=== PATIENT | female | born 1965 | race Caucasian/White ===

== ENCOUNTER → 2019-01-02 13:09 | Outpatient (CLI) | payer BC | END | disposition home or self-care (01) | LOC: D.US 13:09 | PROVIDERS: ATTEND Internal Medicine Interventional Cardiology | DX: R09.89 Other specified symptoms and signs involving the circulatory and respiratory systems (principal) ==

== ENCOUNTER → 2019-01-17 07:55 | Outpatient (CLI) | payer BC ==
--- NOTE | ~2019-01-17 | ST ---
PATIENT:LINDA DELA CRUZ MEDICAL RECORD: [id number] SEX: F LOCATION:[facility] ORDER #: ADMISSION DATE: 01/17/19 AGE OF PATIENT: 53 REFERRING PHYSICIAN: INTERPRETING PHYSICIAN: BUZZ STERLING MD DATE OF SERVICE: 01/17/2019 PROCEDURE: Nuclear stress test. INDICATION: Angina, hypertension, abnormal ECG. DESCRIPTION OF PROCEDURE: She was exercised on standard Lexiscan protocol for 33 mCi of sestamibi injected at peak stress, 11 mCi were used previously for rest images. FINDINGS: Gated SPECT reveals preserved ejection fraction at 71% with good wall motioning and thickening and brightening throughout all segments. SPECT imaging Cardiolite was used as myocardial perfusion agent. There is reversibility anteriorly and apically. This includes the basal, mid, apical anterior segments as well as the apex itself. The degree of reversibility is mild to moderate. The amount of myocardium involved is moderate. OVERALL IMPRESSION: This is an intermediate risk abnormal nuclear stress test. Reversible ischemia anteroapically suggestive of hemodynamically significant coronary artery disease. TRANSINT:[id number] Voice Confirmation ID: [id number] DOCUMENT ID: [id number] BUZZ STERLING MD CC: TOY MANN [id number] DICTATION DATE: 01/18/19 1416 ELECTRICAL ENGINEER MEP: 01/19/19 0454 DEP CLI 01/17/19 [place] [id number] [place] [address]
[~2019-01-17 07:55] MED LIST: BAYER CHEWABLE81 MG PO; CALCIUM 600 +1 EAC3 PO; CENTRUM SILVER1 EAC3 PO; CO Q-10100 MG PO; COLACE100 MG PO; CYANOCOBAL1000 MCG/4 IM; EDARBI40 MG PO; FISH OIL 1,0001 CA1 PO; LOPRESSOR25 MG PO; MAG-OX 400 MG400 MG PO; MUCINEX600 MG PO; SINGULAIR10 MG PO; SYNTHROID88 MCG PO; TRIAMTERENE-HC1 EAC3 PO
--- NOTE | 2019-01-18 13:04 | EC ---
PATIENT:LINDA DELA CRUZ DATE OF SERVICE: 01/17/19 SEX: F MEDICAL RECORD: [id number] DATE OF : 63 LOCATION:[facility] AGE OF PATIENT: 53 ADMISSION DATE: 01/17/19 REFERRING PHYSICIAN: INTERPRETING PHYSICIAN: RATNA COVINGTON MD ECHOCARDIOGRAM REPORT ECHO CHARGES 4 ECHO COMPLETE Date: 01/17/19 CLINICAL DIAGNOSIS: ARRHYTHMIAS/ANGINA/MURMUR/HTN ECHOCARDIOGRAPHIC MEASUREMENTS (adult normal given) AC root (d.<3.7cm) 2.7 cm LV Septum d (<1.2 cm> 0.8 cm Valve Excursion 2.0 cm LV Septum (systole) 1.0 cm Left Atria (s.<4.0cm> 3.3 cm LVPW d(<1.2cm) 0.7 cm RV (d.<2.3cm) 2.2 cm LVPW (sytole) 1.0 cm LV diastole(<5.6CM) 4.2 cm MV E-F(>70mm/sec) cm LV systole 3.3 cm LVOT Diameter 1.8 cm MV exc.(>10mm) cm Est.ejection fraction (50-75%) % DOPPLER: LVIT cm/sec A 59.0 cm/sec E 73.0 cm/sec LA cm/sec RVSP 15.2 mmHg LVOT 77.0 cm/sec AOP1/2T m/s Asc. Ao 138 cm/sec RVOT 64.0 cm/sec RA cm/sec PA 102 cm/sec AV Gradient Peak 7.6 mmHg AV Mean 3.8 mmHg AV Area 1.4 cm MV Gradient Peak 3.3 mmHg MV Mean 1.3 mmHg MV Area cm COMMENTS: OP - HC Clinical Laboratory Science Professor: 1 GARRETT RAYLE Watch Dial Stoner: 3 Dr. Multani TAPE# PACS Pericardial Effusion N DATE OF SERVICE: 01/17/2019 Adequate 2-D echo, color-flow and spectral Doppler, and M-mode. No LVH. LV internal dimension is normal. Wall motion is normal. EF is greater than or equal to 55%. Aortic valve is tricuspid. No evidence of stenosis by Doppler interrogation. Left atrium is normal. Mitral valve shows no prolapse. Trace MR. Right-sided chambers are grossly normal. Trace TR. TRANSINT:[id number] Voice Confirmation ID: [id number] DOCUMENT ID: [id number] ECHOCARDIOGRAM REPORT [id number] LINDA DELA CRUZ GREGORY A MD at 1304 CC: [id number] DICTATION DATE: 01/17/19 1504 TICKET TAKER: 01/18/19 0006 DEP CLI 01/17/19 [place] [id number] [place] [id number]
[2019-01-21 19:49] VITALS: BMI 32.0
== END | disposition home or self-care (01) ==
LOC: D.HCCECHO 07:55
PROVIDERS: ATTEND Internal Medicine Interventional Cardiology
DX: I20.9 Angina pectoris, unspecified (principal); I10 Essential (primary) hypertension

== ENCOUNTER 2019-01-21 14:46 | Observation (INO) | payer BC ==
[~2019-01-21] VITALS: Ht 167.6 cm; Wt 90.0 kg
--- NOTE | ~2019-01-21 | HEMODYNAMI ---
PATIENT:LINDA DELA CRUZ MEDICAL RECORD: [id number] : 63 [facility] ADMISSION DATE: 01/21/19 Generatedon:01/22/201916:17 Patient name: LINDA DELA CRUZ Patient #: [id number] SSN: [id number] : 1965 Date of study: 01/22/2019 Page: Of Hemodynamic Procedure Report Patient Data Patient Demographics Procedure consent was obtained First Name: LINDA Gender: Female Last Name: JOSE DE JESUS : 1965 [facility] Initial: C Age: 53 year(s) Patient #: [id number] Race: SSN: [id number] Additional ID: [id number] Contact details Address: [address] [place] [address] [place] State: [place] City: [place] Zip code: [address] Past Medical History Performed procedures and imaging results Date Procedure Procedure Results Comments 01/06/2019 Stress testing Positive->Intermediate with SPECT MPI risk Allergies Allergen Reaction Date Comments Reported Other allergy 01/22/2019 Sulfa, Latex Admission Admission Data Admission Date: 01/21/2019 Admission Time: 17:20 Arrival Date: 01/22/2019 Arrival Time: 0:00 Admit Source: Other Insurance Payor: Private Room #: [id number] health insurance [facility] #: [id number] Height (in.): 66 BSA: 1.99 (m2) Height (cm.): 167.64 BMI: 32.02 (kg/m2) Weight (lbs.): 198.42 Weight (kg.): 90 Lab Results Lab Result Date: 01/22/2019 Lab Result Time: 0:00 Biochemistry Name Units Result Min Max BUN mg/dl 18 --(---*)-- 7 18 Creatinine mg/dl 0.8 --(-*--)-- 0.6 1.3 eGFR ml/min 79.64883 *-(----)-- 90 120 NONAFRICAN Troponin l ng/ml 0.017 --(-*--)-- 0 0.06 CBC Name Units Result Min Max Hematocrit % 39.5 -*(----)-- 42 54 Hemoglobin g/dl 13.7 --(*---)-- 13.5 17.5 Procedure Procedure Types Cath Procedure Diagnostic Procedure C LH w/Coronaries Procedure Description Procedure Date Procedure Date: 01/22/2019 Procedure Start Time: 15:50 Procedure End Time: 16:02 Procedure Staff Name Function Ahmet Cole MD Performing Physician Abbey Horne RT Monitor Payal Ruvalcaba RT Monitor Taqueria Hamilton RN Nurse Manda Ibanez RT Scrub Sean Stevenson RT Scrub Indication Chest pain Procedure Data Cath Procedure Fluoroscopy Diagnostic fluoroscopy Total fluoroscopy Time: 1.4 time: 1.4 min min Diagnostic fluoroscopy Total fluoroscopy dose: 242 dose: 242 mGy mGy Contrast Material Contrast Material Type Amount (ml) Isovue 370 53 Entry Location Entry Primary Successful Side Size Upsize Upsize Entry Closure Succes sful Closure Location (Fr) 1 (Fr) 2 (Fr) Remarks Device Remarks Radial Right 6 Fr artery Short Femoral Right 5 Fr Exoseal artery Estimated blood loss: 5 ml Diagnostic catheters Device Type Used For End Catheter Placement DIAGNOSTIC Sawyer 110cm 5 Procedure Fr catheter ([id number]) MULTIPACK JL 4.0 5Fr Procedure catheter MULTIPACK 3DRC 5Fr Procedure catheter MULTIPACK Pigtail 5 Fr Procedure catheter Procedure Complications No complications Procedure Medications Medication Administration Route Dosage Versed I.V. 2 mg Fentanyl I.V. 100 mcg Zofran I.V. 4 mg Oxygen etCO2 Nasal cannula 2 l/min Lidocaine 2% added to field 20 Heparin Flush Bag added to field 2 bags (1000units/500ml NS) 0.9% NaCl I.V. 100 ml/hr Versed I.V. 1 mg Fentanyl I.V. 50 mcg Versed I.V. 1 mg Fentanyl I.V. 50 mcg Radial Cocktail I.A. 1 syringe (Verapamil 2mg/Nitro 400mcg/Heparin 1500units) Hemodynamics Rest BSA: 1.99 (m2) HGB: 13.7 (g/dl) O2 Consumption: Estimated: 209.06 (ml/min) O2 Co nsumption indexed: Estimated:105.06 (ml/min/m) Heart Rate: 92 (bpm) Pressure Samples Time Site Value (mmHg) Purpose Heart Use Rate(bpm) 15:58 LV 104/8,11 Snapshot 101 15:59 AO 92/66(77) Pullback 96 15:59 LV 99/16,18 Pullback 96 Gradients Valve Time Site 1 Site 2 Mean SEP/DFP Peak To Heart Use (mmHg) (sec/min) Peak Rate (mmHg) (bpm) Aortic 15:59 LV AO 5 18 7 96 99/16,18 92/66(77) Calculations Valve P-P Mean Valve Index Valve Source Name Gradient Area Flow (cm2) Aortic 7 5 7 5 Snapshots Pre Cath Intra NCS Post Cath Vital Signs Time Heart Resp SPO2 etCO2 NIBP Rhythm Pain Sedation Rate (ipm) (%) (mmHg) (mmHg) Status Level (bpm) 15:41:26 92 32 96 0.7 113/76(95) NSR 0 (11) 10(A) , No pain 15:46:30 89 76 92 2.2 102/69(84) NSR 0 (11) 10(A) , No pain 15:50:29 95 96 96 34.7 102/66(84) NSR 0 (11) 10(A) , No pain 15:54:31 84 55 94 0 92/57(72) NSR 0 (11) 9(A) , No pain 15:58:25 96 15 96 24.9 101/69(88) NSR 0 (11) 9(A) , No pain 16:02:22 98 16 96 21.9 106/67(87) NSR 0 (11) 10(A) , No pain Medications Time Medication Route Dose Verified Delivered Reason Notes Effectiveness by by 15:44:33 Oxygen etCO2 2 l/min Ahmet Meng used for Nasal St Anival Hamilton business test analyst cannula 15:45:14 Lidocaine 2% added 20ml Ahmet Leo for local to vial [facility] anesthetic field MD COTTON 15:45:23 Heparin Flush added 2 bags Ahmet Leo used for Bag to [facility] procedure (1000units/500ml field MD COTTON NS) 15:45:33 0.9% NaCl I.V. 100 Ahmet Meng Per ml/hr St Anival Hamilton RN physician 15:46:20 Zofran I.V. 4 mg Ahmet Meng Per KelseyAnival lucero MD 15:50:05 Versed I.V. 2 mg Ahmet Sathishie for sedation St Anival Hamilton RN, MD 15:50:10 Fentanyl I.V. 100 mcg Ahmet Bowerie for sedation St Anival Hamilton RN, MD 15:51:50 Radial Cocktail I.A. 1 Ahmet Leo for (Verapamil syringe KelseyAnival Cole vasodilation 2mg/Nitro MD COTTON 400mcg/Heparin 1500units) 15:55:19 Versed I.V. 1 mg Ahmet Buffie for sedation St Anival Hamilton RN, MD 15:55:22 Fentanyl I.V. 50 mcg Ahmet Buffie for sedation St Anival Hamilton RN, MD 15:57:14 Versed I.V. 1 mg Ahmet Bowerie for sedation St Anival Hamilton RN, MD 15:57:18 Fentanyl I.V. 50 mcg Ahmet Buffie for sedation St Anival Hamilton RN, MD Procedure Log Time Note 15:13:30 Indication : Chest pain 15:13:39 Procedure Status Urgent Heart Cath (IP). 15:13:43 Abbey Horne RT(R) sent for patient. Start room use. 15:13:46 Time tracking: Regular hours (M-F 7:00 - 5:00) 15:13:50 Plan of Care:Hemodynamics will remain stable., Cardiac rhythm will remain stable., Comfort level will be maintained., Respiratory function will remain adequate., Patient/ family verbilizes understanding of procedure., Procedure tolerated without complication., Recovers from procedure without complications.. 15:14:15 Risk of Mortality: 0.1 15:14:18 Risk of blood transfusion: 0.1 15:14:21 Risk of COLLIN: 0.3 15:14:28 Stress Test: yes; abnormal ? 15:14:31 Lab results completed and on chart. 15:15:14 Lab Result : BUN 18 mg/dl 15:15:14 Lab Result : Creatinine 0.8 mg/dl 15:15:14 Lab Result : eGFR NONAFRICAN 79.65495 ml/min 15:15:14 Lab Result : Troponin l 0.017 ng/ml 15:15:14 Lab Result : Hemoglobin 13.7 g/dl 15:15:14 Lab Result : Hematocrit 39.5 % 15:15:52 Patient allergic to Other allergySulfa, Latex 15:16:28 Informed consent obtained and on chart 15:20:01 Arrival Date: 01/22/2019 12:00:00 AM 15:20:03 Admit Source: Other 15:20:05 Insurance Payor : Private health insurance 15:20:30 Patient Height : 66 inches 15:20:34 Patient Weight : 198.42 lbs 15:20:56 Patient received from Med II to CCL 1 Alert and oriented. Tansferred to table in Supine position. 15:21:29 Warm blankets applied, and mitchell hugger turned on for patient comfort. 15:21:30 Correct patient and procedure confirmed by team. 15:21:37 H&P Date Dictated: 01/22/2019 Within 30 days and on chart.. 15:21:38 Pre-procedure instructions explained to patient. 15:21:39 Pre-op teaching completed and patient verbalized understanding. 15:21:54 Family in patients room. 15:21:56 Patient NPO since Midnight. 15:22:32 ECG and BP/O2 sat monitors applied to patient. 15:23:33 Is the patient allergic to Iodine/contrast media? No. 15:23:35 Was the patient premedicated? Yes 15:23:36 Is patient on blood thinner?No 15:23:40 Patient diabetic? No. 15:23:42 If diabetic: On Metformin? N/A 15:23:47 HCG/Urine : completed and on chart 15:24:39 pt has had ablasion, spuse has had vastectomy, negative to . 15:24:45 ----Pre-sedation anethsthesia assessment.---- 15:24:48 Previous problem with sedation/anesthesia? No ? 15:24:50 Snore? No 15:24:52 Sleep apnea? No 15:24:54 Deviated septum? No 15:24:56 Opens mouth fully? Yes 15:24:57 Sticks out tongue? Yes 15:24:59 Airway obstruction? No ? 15:25:03 Dentures? No ? 15:25:11 Patient pain scale 0/10 ?. 15:25:20 Alarms reviewed by R. N. 15:25:20 Sharps counted by scrub and verified by R.N. 15:25:25 Vital chart was started 15:25:26 Full Disclosure recording started 15::18 Baseline sample Acquired. 15::23 Rhythm: sinus rhythm 15:31:05 Pre procedure: right dorsailis pedis pulse 1+ Palpable, but thready & weak; easily obliterated 15:31:21 ACIST Syringe (15668) opened to sterile field. 15:31:21 Bag Decanter (2002) opened to sterile field. 15:31:22 Medline Cath Pack ([id number]) opened to sterile field. 15:31:24 ACIST Hand Control (50815) opened to sterile field. 15:31:25 ACIST Manifold (51793) opened to sterile field. 15:31:26 Tegaderm 4 x 4 (1626W) opened to sterile field. 15:31:28 EMERALD Guide Wire (728-680) opened to sterile field. 15:36:43 IV started by Taqueria Hamilton RN inleft forearm with a 22 gauge IV catheter with 0.9% NaCl at KVO. 15:36:57 IV right antecubital D/C'd due to site irritation. 15:44:33 Oxygen 2 l/min etCO2 Nasal cannula was administered by Taqueria Hamilton RN; used for procedure; Verbal order read back and verified. 15:45:14 Lidocaine 2% 20ml vial added to field was administered by Ahmet Cole MD; for local anesthetic; Verbal order read back and verified. 15:45:23 Heparin Flush Bag (1000units/500ml NS) 2 bags added to field was administered by Ahmet Cole MD; used for procedure; Verbal order read back and verified. 15:45:33 0.9% NaCl 100 ml/hr I.V. was administered by Taqueria Hamilton RN; Per physician; Verbal order read back and verified. 15:46:20 Zofran 4 mg I.V. was administered by Taqueria Hamilton RN; Per physician; Verbal order read back and verified. 15:48:00 Use device set Radial Dx or PCI 15:48:37 MBrace Wrist Support ([id number]) opened to sterile field. 15:48:40 SHEATH 6FR RAIN (4515753) opened to sterile field. 15:49:28 --------ALL STOP TIME OUT------ 15:49:29 Final Timeout: patient, procedure, and site verified with staff and physician. All members of the team are in agreement. 15:49:32 Right Radial & Right Groin site verified by team. 15:49:37 Fire Safety Assessment: A--An alcohol-based skin anteseptic being used preoperatively., C--Open oxygen or nitrous oxide is being used., D--An ESU, laser, or fiber-optic light is being used. 15:49:40 Physical assessment completed. ASA score P 2 - A patient with mild systemic disease as per Ahmet Cole MD. 15:49:44 2) 60-89 Mildly reduced kidney function, and other findings (as for stage 1) point to kidney disease. 15:49:47 Maximum allowable contrast dose (3.7 X eGFR X 0.75)219 ml. 15:49:52 Sedation plan: IV Moderate Sedation Medication:Versed, Fentanyl 15:50:00 Procedure started. 15:50:05 Versed 2 mg I.V. was administered by Taqueria Hamilton RN; for sedation; Verbal order read back and verified. 15:50:10 Fentanyl 100 mcg I.V. was administered by Taqueria Hamilton RN; for sedation; Verbal order read back and verified. 15:50:14 Local anesthetic to right radial VEIN with Lidocaine 2% by Ahmet Cole MD.INITIAL ACCESS ONLY 15:50:29 A DIAGNOSTIC Sawyer 110cm 5 Fr catheter (984054) was advanced over the wire and used for Procedure. 15:50:46 A 6 Fr Short sheath was inserted into the Right Radial artery 15:51:50 Radial Cocktail (Verapamil 2mg/Nitro 400mcg/Heparin 1500units) 1 syringe I.A. was administered by Ahmet Cole MD; for vasodilation; Verbal order read back and verified. 15:52:29 ACCESS TO RT RADIAL VEIN, CATHETER REMOVED, PROCEEDING TO RT GROIN. 15:53:01 Local anesthetic to right femoral artery with Lidocaine 2% by Ahmet Cole MD.ADDITIONAL ACCESS 15:53:05 SHEATH 5FR [place] (VFU449) opened to sterile field. 15:53:21 A 5 Fr sheath was inserted into the Right Femoral artery 15:53:35 Use device set Multipack Set 15:53:38 DIAGNOSTIC Multipack 5Fr catheter set ([id number]) opened to sterile field. 15:53:44 A MULTIPACK JL 4.0 5Fr catheter was advanced over the wire and used for Procedure. 15:54:39 LCA angiography performed. 15:55:19 Versed 1 mg I.V. was administered by Taqueria Hamilton RN; for sedation; Verbal order read back and verified. 15:55:22 Fentanyl 50 mcg I.V. was administered by Taqueria Hamilton RN; for sedation; Verbal order read back and verified. 15:55:45 Catheter removed. 15:55:55 A MULTIPACK 3DRC 5Fr catheter was advanced over the wire and used for Procedure. 15:56:38 RCA angiography performed. 15:56:46 ACCDominant side:Co-Dominant 15:56:59 Catheter removed. 15:57:04 A MULTIPACK Pigtail 5 Fr catheter was advanced over the wire and used for Procedure. 15:57:14 Versed 1 mg I.V. was administered by Taqueria Hamilton RN; for sedation; Verbal order read back and verified. 15:57:18 Fentanyl 50 mcg I.V. was administered by Taqueria Hamilton RN; for sedation; Verbal order read back and verified. 15:57:21 Injector settings: Ml/sec: 10, Volume: 20, 15:58:44 LV hemodynamics recorded. 15:58:49 LV gram done using LEROY 15:58:58 EF : 55 % 15:59:30 Catheter removed. 15:59:39 EXOSEAL 5Fr (EX500) opened to sterile field. 15:59:56 Sheath removed intact; hemostasis achieved with Exoseal to the Right Femoral artery. 16:00:15 Procedure ended.(Physican Out) 16:00:52 Fluoroscopy time 01.40 minutes. 16:00:57 Fluoroscopy dose: 242 mGy 16:00:57 Flurop Dose total: 242 16:01:03 Dose Area Product 23240 mGy/cm. 16:01:15 Contrast amount:Isovue 370 53ml. 16:01:18 Maximum allowable dose exceeded? No. 16:01:19 ZEPHYR REGULAR TR BAND (726835) opened to sterile field. 16:01:19 Sharps counted by scrub and verified by R.N. 16:01:20 Tegaderm 4 x 4 (1626W) opened to sterile field. 16:01:25 Post-op/insertion site Right Femoral artery dressed using a 4 x 4 and Tegaderm. 16:01:30 Post right femoral artery:stable, soft, clean and dry 16:01:32 Post Procedure Pulses reassessed and unchanged 16:01:36 Post procedure: right dorsailis pedis pulse 1+ Palpable, but thready & weak; easily obliterated. 16:01:40 Post-procedure physical assessment completed. ASA score P 2 - A patient with mild systemic disease as per Ahmet Cole MD. 16:01:45 Post procedure rhythm: unchanged. 16:01:48 Estimated blood loss: 5 ml 16:01:50 Post procedure instruction explained to patient.Patient verbalizes understanding. 16:01:53 Patient needs reinforcement of post procedure teaching. 16:02:35 Procedure Complication : No complications 16:02:41 Operative report dictated upon procedure completion. 16:02:42 See physician's report for complete and final results. 16:02:44 Report given to Pre/Post Procedure Room. 16:02:48 Patient transfered to Pre/Post Procedure Room with Stretcher. 16:02:53 Full Disclosure recording stopped 16:03:01 C Findings: mild to moderate CAD (<70%) 16:04:10 Vital chart was stopped 16:15:15 End room use (Document Last) 16:17:09 [place] band inflated with 10cc of air. Device Usage Item Name Manufacture Quantity Catalog Hospital Part Current Minima l Lot# / Number Charge Number Stock Stock Serial# Code ACIST Acist 1 41726 932439 759871 390546 20 Syringe Medical (45969) Systems Inc Bag Microtek 1 2001S 782406 78294 658159 5 Decanter Medical Inc. (2001S) Medline Medline 1 [id number] 360799 99296 704294 5 Cath Pack ([id number]) ACIST Hand Acist 1 31677 298569 318979 470164 5 Control Medical (71183) Systems Inc ACIST Acist 1 34577 059055 748234 066504 5 Manifold Medical (45142) Systems Inc Tegaderm 4 3M 2 1626W 814218 218190 797015 5 x 4 (1626W) EMERALD Cardinal 1 502-455 053549 951770 387214 5 Guide Wire Health (588-713) MBrace Advanced 1 140-0250-00 891358 81711 561138 5 Wrist Vascular Support Dynamics (145825388) SHEATH 6FR Cardinal 1 8694491 220403 1670194 504357 5 [facility] (6538418) DIAGNOSTIC Terumo 1 91-7251 463001 047440 505102 5 Sawyer 110cm 5 Fr catheter (629104) SHEATH 5FR Terumo 1 TSI198 290782 284683 685302 5 [place] (STM888) DIAGNOSTIC Cardinal 1 YY6146 036109 30155 712690 30 Multipack Health 5Fr catheter set (QW8276) MULTIPACK Cardinal 1 229969 5 JL 4.0 5Fr Health catheter MULTIPACK Cardinal 1 925604 5 3DRC 5Fr Health catheter MULTIPACK Cardinal 1 980262 5 Pigtail 5 Health Fr catheter EXOSEAL 5Fr Cardinal 1 EX500 122817 200103 726556 10 (EX500) Health ZEPHYR Cardinal 1 635341 009195 5085304 929112 5 REGULAR TR Health BAND (104042) Signature Audit [place] Stage Time Signature Unsigned Intra-Procedure 01/22/2019 Payal Ruvalcaba 4:15:29 PM RT(R) Intra-Procedure 01/22/2019 Taqueria Hamilton RN 4:17:25 PM Intra-Procedure 01/22/2019 Ahmet Powers 4:17:48 PM Anival COTTON [facility] [address] [place] [address]
[2019-01-21 15:00] VITALS: BP 143/80
[2019-01-21 15:54] LABS: BASOPHILS 0.3 % (0-2); EOSINOPHILS 1.4 % (0-7); HEMATOCRIT 41.5 % (36.0-48.0); HEMOGLOBIN 14.6 g/dL (12-16); IMMATURE GRANULOCYTES 0.2 % (0-5); LYMPHOCYTES 31.9 % (15-50); MCH 31.2 pg (26.0-34.0); MCHC 35.2 g/dL (31.0-37.0); MCV 88.7 fL (80.0-100.0); MEAN PLATELET VOLUME 9.4 fL (7.4-10.4); MONOCYTES 8.3 % (2-11); NEUTROPHILS 57.9 % (40-80); PLATELET COUNT 360 10x3/uL (130-400); RBC 4.68 10x6/uL (4.00-5.40); RDW 13.5 % (11.5-14.5); WBC 9.1 10x3/uL (4.8-10.8)
[2019-01-21 16:00] VITALS: BP 130/79
[2019-01-21 16:08] LABS: CALC OSMOLALITY 275 mosm/kg (275-300); CALCIUM 9.8 mg/dL (8.5-10.1); CARBON DIOXIDE 27.4 mmol/L (21.0-32.0); CHLORIDE - SERUM 101 mmol/L (98-107); CREATININE - SERUM 0.8 mg/dL (0.6-1.3); GLUCOSE 97 mg/dL (74-106); POTASSIUM - SERUM 3.5 mmol/L (3.5-5.1); SODIUM 138 mmol/L (136-145); UREA NITROGEN 13 mg/dL (7-18); eGFR NON AFRICAN AMERICAN 79 mL/min (90-120)
[2019-01-21 16:09] LABS: INR 0.97 (0.85-1.17); PROTIME 12.4 SECONDS (11.6-15.0)
[2019-01-21 16:10] LABS: APTT 32.5 SECONDS (22.8-39.4)
[2019-01-21 16:23] LABS: ALBUMIN 4.1 g/dL (3.4-5.0); ALKALINE PHOSPHATASE 65 U/L (46-116); ALT (SGPT) 32 U/L (10-68); BILIRUBIN - TOTAL 0.32 mg/dL (0.2-1.3); CKMB 0.4 U/L (0.0-3.6); CREATINE KINASE 61 UL (21-215); PROTEIN - SERUM 7.8 g/dL (6.4-8.2)
[2019-01-21 16:27] LABS: TROPONIN-I < 0.017 ng/mL (0.000-0.060)
[2019-01-21 17:00] VITALS: BP 123/75
[2019-01-21 18:00] VITALS: BP 123/72
[2019-01-21] MEDS ORDERED: SYNTHROID88 MCG PO (18:38)
[2019-01-21] MEDS ORDERED: SINGULAIR10 MG PO (18:39)
[2019-01-21] MEDS ORDERED: CYANOCOBAL1000 MCG/4 IM (18:41)
[2019-01-21] MEDS ORDERED: TRIAMTERENE-HC1 EAC3 PO (18:43)
[2019-01-21] MEDS ORDERED: EDARBI40 MG PO (18:43)
[2019-01-21] MEDS ORDERED: CENTRUM SILVER1 EAC3 PO (18:44)
[2019-01-21] MEDS ORDERED: CALCIUM 600 +1 EAC3 PO (18:44)
[2019-01-21] MEDS ORDERED: BAYER CHEWABLE81 MG PO (18:45)
[2019-01-21] MEDS ORDERED: FISH OIL 1,0001 CA1 PO (18:45)
[2019-01-21] MEDS ORDERED: CO Q-10100 MG PO (18:45)
[2019-01-21] MEDS ORDERED: COLACE100 MG PO (18:46)
[2019-01-21] MEDS ORDERED: MAG-OX 400 MG400 MG PO (18:46)
[2019-01-21] MEDS ORDERED: MUCINEX600 MG PO (18:47)
[2019-01-21] MEDS ORDERED: LOPRESSOR25 MG PO (19:09)
--- NOTE | 2019-01-21 19:16 | NUR ---
PT REQUESTING "WELCOME BASKET" GRINDER SET UP OPERATOR SURFACE TOOK PT BATH BASIN WITH, SOCKS, TOOTH BRUSH AND TOOTH PASTE, BODY WASH, LOTION AND A BRUSH.
[2019-01-21 19:49] VITALS: BP 131/73; Ht 167.6 cm; Wt 90.0 kg
--- NOTE | 2019-01-21 20:00 | NUR ---
PT A&O. RESPERATIONS EVEN ON RA, IV TO RIGHT WIRST AC, SITE CLEAN AND DRY. HISTORY AND MED REC COMPLETE. PT EATING CHIC HAILE A THAT FAMILY HAD BROUGHT IN, PT CHRISTOPHERY DENIES PAIN OR NEEDS, BED LOW, CL IN REACH.
[2019-01-22] VITALS: BP 102/57
--- NOTE | 2019-01-22 02:12 | NUR ---
RESTING WITH EYES CLOSED, REPSERATIONS EVEN. NO S/S DISTRESS NOTED.
--- NOTE | 2019-01-22 02:43 | NUR ---
I have reviewed this patient and I concur with the Shift Assessment completed by the Licensed Practical Nurse today this shift.
[2019-01-22 04:30] VITALS: BP 120/64
[2019-01-22 04:46] LABS: BASOPHILS 0.2 % (0-2); EOSINOPHILS 3.4 % (0-7); HEMATOCRIT 39.5 % (36.0-48.0); HEMOGLOBIN 13.7 g/dL (12-16); IMMATURE GRANULOCYTES 0.1 % (0-5); LYMPHOCYTES 33.5 % (15-50); MCHC 34.7 g/dL (31.0-37.0); MCV 89.4 fL (80.0-100.0); MEAN PLATELET VOLUME 9.4 fL (7.4-10.4); NEUTROPHILS 53.8 % (40-80); PLATELET COUNT 338 10x3/uL (130-400); RBC 4.42 10x6/uL (4.00-5.40); RDW 13.6 % (11.5-14.5); WBC 8.3 10x3/uL (4.8-10.8)
[2019-01-22 05:20] LABS: CALC OSMOLALITY 280 mosm/kg (275-300); CALCIUM 9.7 mg/dL (8.5-10.1); CARBON DIOXIDE 28.8 mmol/L (21.0-32.0); CHLORIDE - SERUM 103 mmol/L (98-107); CREATININE - SERUM 0.8 mg/dL (0.6-1.3); GLUCOSE 105 mg/dL (74-106); MAGNESIUM - SERUM 2.2 mg/dL (1.8-2.4); PHOSPHOROUS 5.3 mg/dL (2.5-4.9); POTASSIUM - SERUM 3.8 mmol/L (3.5-5.1); SODIUM 140 mmol/L (136-145); TROPONIN-I < 0.017 ng/mL (0.000-0.060); eGFR NON AFRICAN AMERICAN 79 mL/min (90-120)
[2019-01-22 05:26] LABS: UREA NITROGEN 18 mg/dL (7-18)
--- NOTE | 2019-01-22 07:22 | NUR ---
RECIEVED REPORT. ALERT AND ORIENTED X4. SITTING UP IN BED WATCHING TV. SINUS RYTHM ON TELEMETRY. WAITING FOR CARDIOLOGY. DENIES ANY NEEDS. REMAIN NPO ORDERED. CONTINUE PLAN OF CARE AND SAFETY PRECAUTIONS.
[2019-01-22 08:26] LABS: CHOL - HDL RATIO 3.5 ratio (2.3-4.1); LDL-HDL RATIO 2.1 ratio (1.5-3.5)
[2019-01-22 10:09] VITALS: BP 108/55
--- NOTE | 2019-01-22 13:46 | NUR ---
ALERT AND ORIENTED X4. SITTING UP IN BED. CONSENTS SIGNED ON CHART. WAITING TO GO TO DINING SERVICE SUPERVISOR. FAMILY AT BEDSIDE.CONTINUE PLAN OF CARE AND SAFETY PRECAUTIONS.
[2019-01-22 14:12] VITALS: BP 113/74
--- NOTE | 2019-01-22 15:00 | NUR ---
TAKEN TO METAL PICKLING EQUIPMENT OPERATOR VIA BED.
--- NOTE | 2019-01-22 16:25 | NUR ---
PT RECEIVED FROM ORTHOPEDIC SPECIALIST VIA STRETCHER FOR RECOVERY. PT AWAKE BUT DROWSY. PT DENIES PAIN OR DISCOMFORT AT THIS TIME. IV X2 PATENT, ONE TO R ARM HEPLOCKED, ONE TO L ARM PATENT INFUSING VIA ORDERS. PT PLACED ON CARDIAC MONITORS. HR NSR, RATE 79, BP 111/66, SAT 99 ON ROOM AIR. ZYPHER BAND AND IMMOBILIZER TO R WRIST, DRESSING CDI NO BLEEDING OR SWELLING NOTED. R GROIN W 5FR EXOCELE, DRESSING CDI NO BLEEDING OR S/S HEMATOMA NOTED. PT INSTRUCTED TO KEEP HEAD ON PILLOW AND LEG STRAIGHT, SHE VERBALIZED UNDERSTANDING. CALL LIGHT IN REACH, AT BS.
--- NOTE | 2019-01-22 16:45 | NUR ---
PT RESTING COMFORTABLY W/O COMPLAINTS. ZBAND AND IMMOBILIZER IN PLACE TO R WRIST, DRESSING CDI NO BLEEDING OR S/S HEMATOMA NOTED. CAP REFILL BRISK. R GROIN SOFT, DRESSING CDI NO BLEEDING OR S/S HEMATOMA NOTED. PEDAL PULSES PALAPBLE. VSS. CALL LIGHT IN REACH
--- NOTE | 2019-01-22 17:30 | NUR ---
4CC AIR REMOVED FROM Z BAND, NO BLEEDING NOTED. R GROIN SOFT, NO S/S HEMATOMA NOTED. VSS. CALL LIGHT IN REACH, REMAINS AT BS.
--- NOTE | 2019-01-22 17:48 | NUR ---
IV X2 REMOVED W CATH INTACT. DISCHARGE INSTRUCTIONS REVIEWED W PT AND , BOTH VERBALIZED UNDERSTANDING. 4 ADD'L CC AIR REMOVED FROM Z BAND W/O BLEEDING NOTED. R GROIN REMAINS SOFT, DRESSING CDI NO BLEEDING OR S/S HEMATOMA NOTED. VSS.
--- NOTE | 2019-01-22 17:54 | NUR ---
MONITORS REMOVED AND PT UP TO DRESS FOR DISCHARGE.
--- NOTE | 2019-01-22 18:03 | NUR ---
ZYPHER BAND REMOVED, 2X2 AND TEGADERM DRESSING APPLIED. PT DISCHARGED VIA WC TO PRIVATE VEHICLE. PT HAS ALL BELONGINGS AND DISCHARGE INFORMATION.
--- NOTE | 2019-01-23 08:54 | OP ---
PATIENT NAME: LINDA DELA CRUZ MEDICAL RECORD: [id number] :63 [facility] ADMISSION DATE:01/21/19 SURGEON: RATNA COVINGTON MD DATE OF OPERATION: 01/22/2019 PROCEDURE: Left heart catheterization, selective coronary angiography, right femoral artery approach. CATHETERS: A 5-Portuguese, 5/4 left and right Rosalba, 5/4 pig. The procedure was well tolerated. The patient returns to the encarnacion. Sheath was removed. Adequate hemostasis was obtained as well as ExoSeal device. FINDINGS: Left ventriculography in 30-degree LEROY view: Normal wall motion and normal systolic function. CORONARY ANATOMY: LEFT MAIN: Left main is free of disease. LAD: Free of disease in the diagonal system. CIRCUMFLEX: Free of disease in the marginal system. RIGHT CORONARY ARTERY: Dominant artery, gives rise to PDA, free of disease. IMPRESSION: Normal left ventricular systolic function, normal coronary anatomy. TRANSINT:[id number] Voice Confirmation ID: [id number] DOCUMENT ID: [id number] RATNA COVINGTON MD at 0854 CC: [id number] DICTATION DATE: 01/22/19 1606 PACKAGING SUPERVISOR: 01/23/19 0022 DIS IN 01/22/19 [facility] [address] [place] [address]
== END 2019-01-22 18:08 | disposition home or self-care (01) ==
LOC: D.ER 14:46 → D.M2 17:20 → OBSVTIME 17:40 → D.CLR 01-22 16:16
PROVIDERS: Family Medicine; ADMIT Internal Medicine Cardiovascular Disease; ATTEND Internal Medicine Cardiovascular Disease
DX: I20.0 Unstable angina (principal); I10 Essential (primary) hypertension